=== PATIENT | female | born 1950 | race Caucasian/White ===

== ENCOUNTER 2018-10-12 14:01 | Inpatient (IN) | payer MEDICARE, SELFPAY ==
[2018-10-12] VITALS (8 sets, daily range): BP systolic 105–162; BP diastolic 47–111; PULSE 81–98; RESP 20–21; TEMP 36.4–37.1; O2SAT 94–97; BMI 17.6; BMI 14.4
--- NOTE | 2018-10-12 14:13 | RAD_ITS ---
STUDY: X-RAY CHEST REASON FOR EXAM: Female, 67 years old. Mental status changes. TECHNIQUE: Single AP portable view of the chest. COMPARISON: None. FINDINGS: EKG electrodes are seen. The lungs are clear and expanded. There is no demonstrated pleural abnormality. Normal size heart. Normal mediastinum and rian. Normal visualized pulmonary arteries. There is atherosclerotic calcification of the aortic arch with tortuosity. Normal visualized thoracic spine. Normal visualized ribs, clavicles, and shoulders. There is no demonstrated abnormality of the visualized soft tissue structures of the upper abdomen. RAD/Chest 1 View (Portable) IMPRESSION: Normal x-ray examination of the chest. Electronically Signed: Bj Paredes MD at 14:42 EST Tel [phone], Service support ,
--- NOTE | 2018-10-12 14:13 | CT_ITS ---
STUDY: CT BRAIN WITHOUT CONTRAST REASON FOR EXAM: Female, 67 years old. Hypotension. Mental status changes. RADIATION DOSAGE (If Supplied By Facility): CTDIvol = ( 44.99 ) mGy, DLP = ( 762.36 ) mGycm TECHNIQUE: Transaxial CT imaging of the brain was performed without administration of intravenous contrast material. Individualized dose optimization techniques were used for this CT. COMPARISON: None. FINDINGS: Normal soft tissue structures. Normal calvarium. There is mild cerebral atrophy with widening of the extra-axial spaces and ventricular dilatation. There are areas of decreased attenuation within the white matter tracts of the supratentorial brain, consistent with microvascular disease changes. Normal basal ganglia and thalami. Normal brainstem. There is mild cerebellar atrophy. There is no intracranial hemorrhage. There are no findings of an acute ischemic infarction. Mucosal thickening along the dependent portion of the right maxillary sinus. CT/Brain/Head without Contrast IMPRESSION: Chronic involutional changes of the brain. Electronically Signed: Bj Paredes MD at 15:13 EST Tel [phone], Service support ,
--- NOTE | 2018-10-12 14:13 | EKG12_ITS ---
Test Reason : HYPOTENSION Blood Pressure : / mmHG Vent. Rate : 087 BPM Atrial Rate : 087 BPM P-R Int : 118 ms QRS Dur : 064 ms QT Int : 394 ms P-R-T Axes : 048 -07 052 degrees QTc Int : 474 ms Normal sinus rhythm Septal infarct , age undetermined Abnormal ECG Confirmed by PANCHITO MARROQUIN, MALGORZATA ([id number]), international editorial producer RHINA SOMMERS ([id number]) on 10/17/2018 4:55:13 PM Referred By: Ra Archuleta Confirmed By:MALGORZATA FLANAGAN MD
--- NOTE | 2018-10-12 14:21 | NURSING ---
NO OLD EKGS
[2018-10-12] MEDS: 0.9% Normal Saline 1,000 ML 150 ML IV ×2 (14:29→21:23)
--- NOTE | 2018-10-12 14:29 | ED.RN ---
CONTACTED PATIENTS SISTER CRISTA FROM CONTACT LIST PROVIDED BY [facility]. SISTER AWARE PATIENT IS IN ED AND REQUESTS WE CALL HER AFTER WE DECIDE A COURSE OF TREATMENT FOR PATIENT.
[2018-10-12 14:31] LABS: Absolute Lymphocyte Count 0.61 X10^3/ul (0.83-4.51); Absolute Neutrophil Count 4.9 X10^3/uL (2.0-7.7); Basophil# 0.02 X10^3/uL; Basophil% 0.3 % (0-1); Eosinophil# 0.18 X10^3/uL; Eosinophils% 2.5 % (0-5); Hematocrit 39.4 % (37-47); Lymphocyte # 0.61 X10^3/ul (4.0); Lymphocyte % 8.6 % (19-41); Mean Corpuscular Hgb 30.7 pg (27.0-32.0); Mean Corpuscular Volume 93.1 fL (81-99); Mean Platelet Vol. 11.1 fl (6.2-12.0); Monocyte# 1.37 X10^3/uL; Monocyte% 19.2 % (0-10); Neutrophil # 4.93 X10^3/uL (2.7-7.7); Neutrophil % 69.1 % (47-70); Platelet Count 205 K/mm3 (150-450); RBC Distribution Width CV 15.8 % (11.6-14.6); RBC Distribution Width SD 52.5 fl (35.1-43.9); Red Blood Count 4.23 M/mm3 (4.2-5.4); White Blood Count 7.1 K/mm3 (4.4-11.0)
[2018-10-12 14:34] LABS: International Normalized Ratio 1.1; POSITIVE COUNT NO; POSITIVE DIFFERENTIAL NO; POSITIVE MORPHOLOGY NO; Prothrombin Time (Protime)PT. 14.1 SECONDS (11.7-14.9)
[2018-10-12 14:35] LABS: Partial Thromboplast Time 33.9 Seconds (24.1-36.2)
[2018-10-12 14:44] LABS: ALB/GLOB Ratio 0.7 RATIO (0.9-2.4); AST(SGOT) 26 U/L (15-37); Alanine Aminotransfer ALT/SGPT 33 U/L (13-56); Alkaline Phosphatase 73 U/L (45-117); Anion Gap 9 (5-15); BUN 16 mg/dL (7-18); BUN/Creat Ratio 29.5 RATIO (10-20); Calcium,Total 9.2 mg/dL (8.5-10.1); Chloride 102 mmol/L (98-107); Creatinine, Serum 0.54 mg/dL (0.55-1.02); EST Glomerular Filtration Rate 118 mL/min (>60); Est Glom Filt Rate - Afr Amer 143 mL/min (>60); Estimated Creatinine Clearance 35.37 ml/min; Globulin 4.1 g/dL (2.2-4.2); Glucose 94 mg/dL (74-106); Potassium 4.1 mmol/L (3.5-5.1); Protein, Total 7.1 g/dL (6.4-8.2); Sodium Level 140 mmol/L (136-145)
[2018-10-12 14:47] LABS: Lactic Acid 1.4 mmol/L (0.4-2.0)
[2018-10-12 14:52] LABS: Mucous, Urine 0 SEEN /hpf (<or=2+); Red Blood Cells-Urine 0 SEEN /hpf (0-5); Squamous Epithelial Cells - UA 0 SEEN /hpf (5-10)
[2018-10-12 14:55] LABS: Color, Urine Yellow (Yellow); Glucose, Dipstick Normal (Normal); Ketone-Dipstick 50 mg/dl (Negative); Leukocyte Esterase-Dipstick 500 /ul (Negative); Nitrite-Dipstick Negative (Negative); Occult Blood-Urine 25 /ul (Negative); Protein-Dipstick 15 mg/dl (Negative); Specific Gravity, Urine 1.015 (1.002-1.030); Urine Bilirubin Dipstick Negative (Negative); Urine Clarity Cloudy (Clear); Urine Urobilinogen Normal (Normal)
--- NOTE | 2018-10-12 15:10 | ED.VISSUMM ---
- ER Visit Summary Date of Service: 10/12/18 Chief Complaint: Mental status change History of Present Illness: The patient is a [address] Romulo Villeda. She is at [facility]. They report that the patient has been hypotensive there with blood pressure in the 80s. She has not been eating. Patient is a poor informant and unable to answer any questions appropriately. Per sister the patient is normally very talkative and alert. She is a full code. Physical Examination: Vitals: Stable. Afebrile. General: Well-developed and cachectic. Head: Normocephalic atraumatic. Neck: Supple, no lymphadenopathy. No JVD. Nontender. Cardiovascular: Regular rate and rhythm. No murmurs. Respiratory: No respiratory distress. Clear to auscultation bilaterally. Abdominal: Soft, nontender, nondistended, normal bowel sounds. No guarding, rebound, or peritoneal signs. Back: Nontender. Extremities: Nontender, no edema. Skin: Normal color, no rash. Neurologic: Alert and oriented ?1. Moves all extremities well. Psych: Normal affect. Test Results: EKG is sinus at 87 no acute changes. CBC is more for lymphocytes and 9 monocytes of 19. Chem-7 is more for creatinine 0.54. LFTs marked for an albumin 3.0. Lactic acid is 1.4. UA shows an infection with 10-25 white blood cells and 4+ bacteria. Chest x-ray shows chronic changes. CT brain shows chronic changes. Emergency Department Course and Treatment: Patient blood pressures been stable here. Most recent pressure was 126/82. She was given Rocephin IV. Treatment Plan: Patient be discussed with the hospitalist and admitted for further evaluation and treatment. Disposition: Admitted in improved condition. Impression: 1. UTI. 2. Acute delirium. This note was generated with [employer] dictation software. It may contain incorrect words, spelling, and punctuation that were not noted in review of the chart prior to signing ED Disposition - Plan for ED Patient: Chief Complaint: Hypotension
[2018-10-12 15:13] LABS: Amorphous Sediment 4+
[2018-10-12 15:14] LABS: Triple Phosphate Crystals Ur RARE /hpf (<or=1+)
[2018-10-12 15:15] LABS: Bacteria 4+ /hpf (None Seen); Calcium Oxalate Crystals Ur RARE /hpf (<or=2+); White Blood Cells 10-25 SEEN /hpf (0-5)
--- NOTE | 2018-10-12 16:01 | PCM.HP.STD ---
Problem List (1) UTI (urinary tract infection) Status: Acute (2) Acute metabolic encephalopathy Status: Acute (3) Anxiety Status: Chronic (4) Schizophrenia Status: Chronic (5) Bipolar 1 disorder Status: Chronic (6) Insomnia Status: Chronic (7) Debility Status: Chronic History of Present Illness Date of Admission: 10/12/18 Chief Complaint: confusion The patient is a 67 year old F with past medical history of schizophrenia, bipolar, anxiety, insomnia, debility, COPD, resident of [facility], who [facility] with increased confusion. There is nobody here to provide a history aside from the patient who is very confused. She is able to tell me her name and what year it is however otherwise she is very confused. She states she does not know why which she was sent here. She thinks it is because she asked for water causing them to send her to the emergency room. It appears that she may have a urinary tract infection. She denies abdominal pain, dysuria, fevers or chills, shortness of breath or cough. She seems somewhat lethargic and will not open her eyes during the exam. 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 Lives: Retirement Smoking Status: Unknown if ever smoked Tobacco Use: Non-smoker Alcohol: None Drugs: None - *Family History Maternal History Items: No pertinent history Paternal History Items: No pertinent history Review of Systems Constitutional: Denies: Chills, Fever, Weight Change, Fatigue HEENT: Denies: Head Aches, Sinus Congestion, Sinus Drainage Cardiovascular: Denies: Chest Pain, Palpitations Respiratory: Denies: Cough, Shortness of breath at rest, Sputum production Gastrointestinal: Denies: Abdominal Pain, Nausea, Vomiting Genitourinary: Denies: Dysuria Musculoskeletal: Denies: Joint Pain, Joint Tenderness Skin: Denies: Rash, Wounds Neurological: Reports: Confusion. Denies: Focal weakness, Numbness, Tingling Psychiatric: Reports: Anxiety, Depression. Denies: Homicidal Ideations, Suicidal Ideations Hematologic/ Lymphatic: Denies: Easy Bruising, Easy Bleeding VTE Information - Inpt Only VTE Present on Admission: No VTE Mechan Device Prophylaxis: None VTE Pharm Prophylaxis ordered?: Yes Patient Problems: Active and Suspected Problems UTI (urinary tract infection) (Acute) Acute metabolic encephalopathy (Acute) - Physical Exam General: Alert, Cooperative, Confused, - - frail HEENT: Atraumatic, PERRLA, EOMI, Normocephalic, - - eyelid matting, scleral erythema Neck: Supple, No JVD, Negative Carotid Bruits Lungs: Clear to auscultation, Normal air movement Cardiovascular: Regular rate, No murmurs Abdomen: Bowel Sounds Present, Soft, Non Tender Extremities: No edema, Capillary Refill Less than 3 Seconds Skin: No rashes, No breakdown Musculoskeletal: No Tenderness to Palpation of Joints or Extremities Neurological: Cranial nerves II-XII grossly intact Psych/Mental Status: - - a/o x 1 Vital Signs Temp Pulse Resp BP Pulse Ox 98.3 F 84 21 H 126/82 H 96 10/12/18 15:22 10/12/18 15:13 10/12/18 15:13 10/12/18 15:13 10/12/18 15:13 Oxygen Delivery Method Room Air Weight: 93 lb 0.561 oz Body Mass Index (BMI) 17.6 Laboratory Tests Past 24 Hrs 10/12/18 10/12/18 10/12/18 14:15 14:15 14:15 WBC 7.1 RBC 4.23 Hgb 13.0 Hct 39.4 MCV 93.1 MCH 30.7 MCHC 33.0 RDW 15.8 H RDW Differential 52.5 H Plt Count 205 MPV 11.1 Immature Gran % (Auto) 0.300 Neut % (Auto) 69.1 Lymph % (Auto) 8.6 L [place] % (Auto) 19.2 H Eos % (Auto) 2.5 Baso % (Auto) 0.3 Absolute Neuts (auto) 4.9 Absolute Lymphs (auto) 0.61 L Total Counted Not Reportable PT 14.1 INR 1.1 APTT 33.9 Sodium 140 Potassium 4.1 Chloride 102 Carbon Dioxide 29.0 Anion Gap 9 BUN 16 Creatinine 0.54 L Estim Creat Clear Calc 35.37 Est GFR (MDRD) Af Amer 143 Est GFR (MDRD) Non-Af 118 BUN/Creatinine Ratio 29.5 H Glucose 94 Lactic Acid Calcium 9.2 Total Bilirubin 0.30 AST 26 ALT 33 Alkaline Phosphatase 73 Total Protein 7.1 Albumin 3.0 L Globulin 4.1 Albumin/Globulin Ratio 0.7 L Urine Color Urine Clarity Urine pH Ur Specific [place] Urine Protein Urine Glucose (UA) Urine Ketones Urine Occult Blood Urine Nitrite Urine Bilirubin Urine Urobilinogen Ur Leukocyte Esterase Urine RBC Urine WBC Ur Squamous Epith Cells Calcium Oxalate Crystal Triple Phos Crystals Amorphous Sediment Urine Bacteria Urine Mucus 10/12/18 10/12/18 14:15 14:40 WBC RBC Hgb Hct MCV MCH MCHC RDW RDW Differential Plt Count MPV Immature Gran % (Auto) Neut % (Auto) Lymph % (Auto) [place] % (Auto) Eos % (Auto) Baso % (Auto) Absolute Neuts (auto) Absolute Lymphs (auto) Total Counted PT INR APTT Sodium Potassium Chloride Carbon Dioxide Anion Gap BUN Creatinine Estim Creat Clear Calc Est GFR (MDRD) Af Amer Est GFR (MDRD) Non-Af BUN/Creatinine Ratio Glucose Lactic Acid 1.4 Calcium Total Bilirubin AST ALT Alkaline Phosphatase Total Protein Albumin Globulin Albumin/Globulin Ratio Urine Color Yellow Urine Clarity Cloudy Urine pH 7.0 Ur Specific [place] 1.015 Urine Protein 15 H Urine Glucose (UA) Normal Urine Ketones 50 H Urine Occult Blood 25 H Urine Nitrite Negative Urine Bilirubin Negative Urine Urobilinogen Normal Ur Leukocyte Esterase 500 H Urine RBC 0 SEEN Urine WBC 10-25 SEEN Ur Squamous Epith Cells 0 SEEN Calcium Oxalate Crystal RARE Triple Phos Crystals RARE Amorphous Sediment 4+ Urine Bacteria 4+ Urine Mucus 0 SEEN Assessment/Plan All Active Problems UTI (urinary tract infection) (Acute) Acute metabolic encephalopathy (Acute) 1. Acute metabolic encephalopathy 2/2 acute UTI - UA with inc. leukocyte esterase, 10-25 wbc, 4+ bacteria continue rocephin, no reaction to it in the ER. No WBC elevation or fever. Follow culture. Possibly viral syndrome with her conjunctival irritation. CT brain with chronic changes. CXR negative. 2. Anxiety/schizophrenia/bipolar - continue home meds. Depakote level on labs sent from [facility]. 3. COPD - lungs clear, O2 normal, no complaint of cough or SOB. 4. HTN - mildly elevated in ER, improving, trend. DVT ppx: lovenox DC planning: return to [facility] when appropriate. This patient was seen by Efrain Sanchez PA-C under the supervision of Doctor Geremias.
--- NOTE | 2018-10-12 16:05 | HP.PCM_ITS ---
Problem List (1) UTI (urinary tract infection) Status: Acute (2) Acute metabolic encephalopathy Status: Acute (3) Anxiety Status: Chronic (4) Schizophrenia Status: Chronic (5) Bipolar 1 disorder Status: Chronic (6) Insomnia Status: Chronic (7) Debility Status: Chronic History of Present Illness Date of Admission: 10/12/18 Chief Complaint: confusion The patient is a 67 year old F with past medical history of schizophrenia, bipolar, anxiety, insomnia, debility, COPD, resident of [facility], who presented from the care home with increased confusion. There is nobody here to provide a history aside from the patient who is very confused. She is able to tell me her name and what year it is however otherwise she is very confused. She states she does not know why which she was sent here. She thinks it is because she asked for water causing them to send her to the emergency room. It appears that she may have a urinary tract infection. She denies abdominal pain, dysuria, fevers or chills, shortness of breath or cough. She seems somewhat lethargic and will not open her eyes during the exam. 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 [place] Smoking Status: Unknown if ever smoked Tobacco Use: Non-smoker Alcohol: None Drugs: None - *Family History Maternal History Items: No pertinent history Paternal History Items: No pertinent history Review of Systems Constitutional: Denies: Chills, Fever, Weight Change, Fatigue HEENT: Denies: Head Aches, Sinus Congestion, Sinus Drainage Cardiovascular: Denies: Chest Pain, Palpitations Respiratory: Denies: Cough, Shortness of breath at rest, Sputum production Gastrointestinal: Denies: Abdominal Pain, Nausea, Vomiting Genitourinary: Denies: Dysuria Musculoskeletal: Denies: Joint Pain, Joint Tenderness Skin: Denies: Rash, Wounds Neurological: Reports: Confusion. Denies: Focal weakness, Numbness, Tingling Psychiatric: Reports: Anxiety, Depression. Denies: Homicidal Ideations, Suicidal Ideations Hematologic/ Lymphatic: Denies: Easy Bruising, Easy Bleeding VTE Information - Inpt Only VTE Present on Admission: No VTE Mechan Device Prophylaxis: None VTE Pharm Prophylaxis ordered?: Yes Patient Problems: Active and Suspected Problems UTI (urinary tract infection) (Acute) Acute metabolic encephalopathy (Acute) - Physical Exam General: Alert, Cooperative, Confused, - - frail HEENT: Atraumatic, PERRLA, EOMI, Normocephalic, - - eyelid matting, scleral erythema Neck: Supple, No JVD, Negative Carotid Bruits Lungs: Clear to auscultation, Normal air movement Cardiovascular: Regular rate, No murmurs Abdomen: Bowel Sounds Present, Soft, Non Tender Extremities: No edema, Capillary Refill Less than 3 Seconds Skin: No rashes, No breakdown Musculoskeletal: No Tenderness to Palpation of Joints or Extremities Neurological: Cranial nerves II-XII grossly intact Psych/Mental Status: - - a/o x 1 Vital Signs Temp Pulse Resp BP Pulse Ox 98.3 F 84 21 H 126/82 H 96 10/12/18 15:22 10/12/18 15:13 10/12/18 15:13 10/12/18 15:13 10/12/18 15:13 Oxygen Delivery Method Room Air Weight: 93 lb 0.561 oz Body Mass Index (BMI) 17.6 Laboratory Tests Past 24 Hrs 10/12/18 10/12/18 10/12/18 14:15 14:15 14:15 WBC 7.1 RBC 4.23 Hgb 13.0 Hct 39.4 MCV 93.1 MCH 30.7 MCHC 33.0 RDW 15.8 H RDW Differential 52.5 H Plt Count 205 MPV 11.1 Immature Gran % (Auto) 0.300 Neut % (Auto) 69.1 Lymph % (Auto) 8.6 L [place] % (Auto) 19.2 H Eos % (Auto) 2.5 Baso % (Auto) 0.3 Absolute Neuts (auto) 4.9 Absolute Lymphs (auto) 0.61 L Total Counted Not Reportable PT 14.1 INR 1.1 APTT 33.9 Sodium 140 Potassium 4.1 Chloride 102 Carbon Dioxide 29.0 Anion Gap 9 BUN 16 Creatinine 0.54 L Estim Creat Clear Calc 35.37 Est GFR (MDRD) Af Amer 143 Est GFR (MDRD) Non-Af 118 BUN/Creatinine Ratio 29.5 H Glucose 94 Lactic Acid Calcium 9.2 Total Bilirubin 0.30 AST 26 ALT 33 Alkaline Phosphatase 73 Total Protein 7.1 Albumin 3.0 L Globulin 4.1 Albumin/Globulin Ratio 0.7 L Urine Color Urine Clarity Urine pH Ur Specific [place] Urine Protein Urine Glucose (UA) Urine Ketones Urine Occult Blood Urine Nitrite Urine Bilirubin Urine Urobilinogen Ur Leukocyte Esterase Urine RBC Urine WBC Ur Squamous Epith Cells Calcium Oxalate Crystal Triple Phos Crystals Amorphous Sediment Urine Bacteria Urine Mucus 10/12/18 10/12/18 14:15 14:40 WBC RBC Hgb Hct MCV MCH MCHC RDW RDW Differential Plt Count MPV Immature Gran % (Auto) Neut % (Auto) Lymph % (Auto) [place] % (Auto) Eos % (Auto) Baso % (Auto) Absolute Neuts (auto) Absolute Lymphs (auto) Total Counted PT INR APTT Sodium Potassium Chloride Carbon Dioxide Anion Gap BUN Creatinine Estim Creat Clear Calc Est GFR (MDRD) Af Amer Est GFR (MDRD) Non-Af BUN/Creatinine Ratio Glucose Lactic Acid 1.4 Calcium Total Bilirubin AST ALT Alkaline Phosphatase Total Protein Albumin Globulin Albumin/Globulin Ratio Urine Color Yellow Urine Clarity Cloudy Urine pH 7.0 Ur Specific [place] 1.015 Urine Protein 15 H Urine Glucose (UA) Normal Urine Ketones 50 H Urine Occult Blood 25 H Urine Nitrite Negative Urine Bilirubin Negative Urine Urobilinogen Normal Ur Leukocyte Esterase 500 H Urine RBC 0 SEEN Urine WBC 10-25 SEEN Ur Squamous Epith Cells 0 SEEN Calcium Oxalate Crystal RARE Triple Phos Crystals RARE Amorphous Sediment 4+ Urine Bacteria 4+ Urine Mucus 0 SEEN Assessment/Plan All Active Problems UTI (urinary tract infection) (Acute) Acute metabolic encephalopathy (Acute) 1. Acute metabolic encephalopathy 2/2 acute UTI - UA with inc. leukocyte esterase, 10-25 wbc, 4+ bacteria continue rocephin, no reaction to it in the ER. No WBC elevation or fever. Follow culture. Possibly viral syndrome with her conjunctival irritation. CT brain with chronic changes. CXR negative. 2. Anxiety/schizophrenia/bipolar - continue home meds. Depakote level on labs sent from [facility]. 3. COPD - lungs clear, O2 normal, no complaint of cough or SOB. 4. HTN - mildly elevated in ER, improving, trend. DVT ppx: lovenox DC planning: return to [facility] when appropriate. This patient was seen by Efrain Sanchez PA-C under the supervision of Doctor Geremias.
--- NOTE | 2018-10-12 16:11 | ED.RN ---
FOUND IN PATIENTS INFO FROM [facility] PT IS ALLERGIC TO CEFTRIAXONE. NOTIFIED DR CLARK AND PHARMACY. DR CLARK TO CHANGE ORDER TO DIFFERENT ANTIBIOTIC.
--- NOTE | 2018-10-12 16:18 | NURSING ---
[facility]
--- NOTE | 2018-10-12 16:28 | ED.RN ---
PATIENTS SON ABHAY NOTIFIED THAT PATIENT IS TO BE ADMITTED TO [facility]. STATES HE WILL CONTACT THE REST OF THE FAMILY. ABHAY IS LISTED AT A CONTACT MEMBER ON PATIENTS LIST.
[2018-10-12] MEDS: Ciprofloxacin 400 MG/200 ML BAG 200 MG IV ×2 (16:52→21:23)
[2018-10-12 18:36] LABS: Prealbumin 11.6 mg/dL (20.0-40.0); Thyroid Stim Hormone (TSH) 0.91 uIU/mL (0.358-3.74)
[2018-10-13] VITALS: PULSE 88
[2018-10-13 02:14] VITALS: BP 127/71; PULSE 88; RESP 21; TEMP 37.4; O2SAT 97
[2018-10-13 04:26] VITALS: TEMP 36.4
[2018-10-13] MEDS: 0.9% Normal Saline 1,000 ML 150 ML IV ×3 (05:06→20:14)
[2018-10-13 07:35] VITALS: BP 113/80; PULSE 100; RESP 20; TEMP 37.6; O2SAT 94
[2018-10-13 08:24] LABS: Vitamin D,25 Hydroxy 71.3 ng/mL (29.95-100.01)
[2018-10-13] MEDS: Enoxaparin 40 MG/0.4 ML Syringe SC (09:31)
[2018-10-13] MEDS: Ciprofloxacin 400 MG/200 ML BAG 200 MG IV ×2 (09:31→22:48)
--- NOTE | 2018-10-13 10:38 | CASEMGMT ---
Addendum entered by Mariann Clements 10/13/18 12:18: Return call from pt son Catarino and confirmed pt will be returning to [facility] when medically ready. Catarino states pt dgt is primary contact. Ruth Roman [phone] Ruth's phone number updated on demo sheet. SW attempted to call Ruth. No VM set up. Unable to leave a message. KRISTINE Lee Original Note: Social Work Pt is from [facility]. DANO spoke with Elmira at [facility] who states pt does not need precert and can return to [facility] anytime. DANO met with pt however pt sleeping and when awoke she is unable to converse with SW. VM left with andrew Toribio requesting return call to confirm d/c plan. Physician notified pt can be d/c when medically ready. Plan: [facility] when medically ready KRISTINE Lee
--- NOTE | 2018-10-13 13:55 | PCM.PROGNOTE ---
<Efrain Sanchez - Last Filed: 10/13/18 13:55> Patient Problems: Active and Suspected Problems UTI (urinary tract infection) (Acute) Acute metabolic encephalopathy (Acute) Subjective: Pt is somewhat more alert today. She is opening her eyes when addressed. She is now A/Ox3. She denies dysuria, incontinence, abdominal pain, fevers, chills. - Physical Exam General: Alert, Oriented x3, Cooperative, Lethargic HEENT: Atraumatic, PERRLA, EOMI, Normocephalic Neck: Supple, No JVD, Negative Carotid Bruits Lungs: Clear to auscultation, Normal air movement Cardiovascular: Regular rate, No murmurs Abdomen: Bowel Sounds Present, Soft, Non Tender Extremities: No edema, Capillary Refill Less than 3 Seconds Skin: No rashes, No breakdown Musculoskeletal: No Tenderness to Palpation of Joints or Extremities Neurological: Cranial nerves II-XII grossly intact Psych/Mental Status: Normal Affect, Appropriate Vital Signs Temp Pulse Resp BP Pulse Ox 99.6 F H 100 20 H 113/80 94 10/13/18 07:35 10/13/18 07:35 10/13/18 07:35 10/13/18 07:35 10/13/18 07:35 Oxygen Delivery Method Room Air Weight: 76 lb 8.006 oz Body Mass Index (BMI) 14.4 Intake and Output for Last 24 Hours 10/11/18 10/12/18 10/13/18 23:59 23:59 23:59 Intake Total 307 / 307 3006 / 3006 Output Total 150 / 150 650 / 650 Balance 157 / 157 2356 / 2356 Microbiology Past 72 Hours 10/12/18 19:36 Respiratory Panel (PCR) - Final Mucosa - Nasopharyngeal Laboratory Tests Past 24 Hrs 10/12/18 10/12/18 10/12/18 14:15 14:15 14:15 WBC 7.1 RBC 4.23 Hgb 13.0 Hct 39.4 MCV 93.1 MCH 30.7 MCHC 33.0 RDW 15.8 H RDW Differential 52.5 H Plt Count 205 MPV 11.1 Immature Gran % (Auto) 0.300 Neut % (Auto) 69.1 Lymph % (Auto) 8.6 L O'Brien % (Auto) 19.2 H Eos % (Auto) 2.5 Baso % (Auto) 0.3 Absolute Neuts (auto) 4.9 Absolute Lymphs (auto) 0.61 L Total Counted Not Reportable PT 14.1 INR 1.1 APTT 33.9 Sodium 140 Potassium 4.1 Chloride 102 Carbon Dioxide 29.0 Anion Gap 9 BUN 16 Creatinine 0.54 L Estim Creat Clear Calc 35.37 Est GFR (MDRD) Af Amer 143 Est GFR (MDRD) Non-Af 118 BUN/Creatinine Ratio 29.5 H Glucose 94 Lactic Acid Calcium 9.2 Total Bilirubin 0.30 AST 26 ALT 33 Alkaline Phosphatase 73 Total Protein 7.1 Albumin 3.0 L Globulin 4.1 Albumin/Globulin Ratio 0.7 L Prealbumin Vitamin D 25-Hydroxy TSH Urine Color Urine Clarity Urine pH Ur Specific [place] Urine Protein Urine Glucose (UA) Urine Ketones Urine Occult Blood Urine Nitrite Urine Bilirubin Urine Urobilinogen Ur Leukocyte Esterase Urine RBC Urine WBC Ur Squamous Epith Cells Calcium Oxalate Crystal Triple Phos Crystals Amorphous Sediment Urine Bacteria Urine Mucus 10/12/18 10/12/18 10/12/18 14:15 14:15 14:40 WBC RBC Hgb Hct MCV MCH MCHC RDW RDW Differential Plt Count MPV Immature Gran % (Auto) Neut % (Auto) Lymph % (Auto) O'Brien % (Auto) Eos % (Auto) Baso % (Auto) Absolute Neuts (auto) Absolute Lymphs (auto) Total Counted PT INR APTT Sodium Potassium Chloride Carbon Dioxide Anion Gap BUN Creatinine Estim Creat Clear Calc Est GFR (MDRD) Af Amer Est GFR (MDRD) Non-Af BUN/Creatinine Ratio Glucose Lactic Acid 1.4 Calcium Total Bilirubin AST ALT Alkaline Phosphatase Total Protein Albumin Globulin Albumin/Globulin Ratio Prealbumin 11.6 L Vitamin D 25-Hydroxy TSH 0.91 Urine Color Yellow Urine Clarity Cloudy Urine pH 7.0 Ur Specific [place] 1.015 Urine Protein 15 H Urine Glucose (UA) Normal Urine Ketones 50 H Urine Occult Blood 25 H Urine Nitrite Negative Urine Bilirubin Negative Urine Urobilinogen Normal Ur Leukocyte Esterase 500 H Urine RBC 0 SEEN Urine WBC 10-25 SEEN Ur Squamous Epith Cells 0 SEEN Calcium Oxalate Crystal RARE Triple Phos Crystals RARE Amorphous Sediment 4+ Urine Bacteria 4+ Urine Mucus 0 SEEN 10/13/18 05:16 WBC RBC Hgb Hct MCV MCH MCHC RDW RDW Differential Plt Count MPV Immature Gran % (Auto) Neut % (Auto) Lymph % (Auto) O'Brien % (Auto) Eos % (Auto) Baso % (Auto) Absolute Neuts (auto) Absolute Lymphs (auto) Total Counted PT INR APTT Sodium Potassium Chloride Carbon Dioxide Anion Gap BUN Creatinine Estim Creat Clear Calc Est GFR (MDRD) Af Amer Est GFR (MDRD) Non-Af BUN/Creatinine Ratio Glucose Lactic Acid Calcium Total Bilirubin AST ALT Alkaline Phosphatase Total Protein Albumin Globulin Albumin/Globulin Ratio Prealbumin Vitamin D 25-Hydroxy 71.3 TSH Urine Color Urine Clarity Urine pH Ur Specific [place] Urine Protein Urine Glucose (UA) Urine Ketones Urine Occult Blood Urine Nitrite Urine Bilirubin Urine Urobilinogen Ur Leukocyte Esterase Urine RBC Urine WBC Ur Squamous Epith Cells Calcium Oxalate Crystal Triple Phos Crystals Amorphous Sediment Urine Bacteria Urine Mucus Medical Necessity - Tobacco Use Smoking Status: Unknown if ever smoked Tobacco Use: Non-smoker Assessment/Plan All Active Problems UTI (urinary tract infection) (Acute) Acute metabolic encephalopathy (Acute) 1. Acute metabolic encephalopathy 2/2 acute UTI - mentation improved, still lethargic. UA with inc. leukocyte esterase, 10-25 wbc, 4+ bacteria continue cipro. Await cultures. 2. Anxiety/schizophrenia/bipolar - continue home meds. Depakote level on labs sent from [facility]. 3. COPD - lungs clear, O2 normal, no complaint of cough or SOB. 4. HTN - mildly elevated in ER, improving, trend. DVT ppx: lovenox DC planning: return to [facility] when appropriate. This patient was seen by Efrain Sanchez PA-C under the supervision of Doctor Aliza. <Andres Ordonez F - Last Filed: 10/13/18 14:32> - Physical Exam Vital Signs Temp Pulse Resp BP Pulse Ox 99.6 F H 100 20 H 113/80 94 10/13/18 07:35 10/13/18 07:35 10/13/18 07:35 10/13/18 07:35 10/13/18 07:35 Oxygen Delivery Method Room Air Weight: 76 lb 8.006 oz Body Mass Index (BMI) 14.4 Intake and Output for Last 24 Hours 10/11/18 10/12/18 10/13/18 23:59 23:59 23:59 Intake Total 307 / 307 3006 / 3006 Output Total 150 / 150 650 / 650 Balance 157 / 157 2356 / 2356 Microbiology Past 72 Hours 10/12/18 19:36 Respiratory Panel (PCR) - Final Mucosa - Nasopharyngeal Laboratory Tests Past 24 Hrs 10/12/18 10/12/18 10/12/18 14:15 14:15 14:15 WBC 7.1 RBC 4.23 Hgb 13.0 Hct 39.4 MCV 93.1 MCH 30.7 MCHC 33.0 RDW 15.8 H RDW Differential 52.5 H Plt Count 205 MPV 11.1 Immature Gran % (Auto) 0.300 Neut % (Auto) 69.1 Lymph % (Auto) 8.6 L O'Brien % (Auto) 19.2 H Eos % (Auto) 2.5 Baso % (Auto) 0.3 Absolute Neuts (auto) 4.9 Absolute Lymphs (auto) 0.61 L Total Counted Not Reportable PT 14.1 INR 1.1 APTT 33.9 Sodium 140 Potassium 4.1 Chloride 102 Carbon Dioxide 29.0 Anion Gap 9 BUN 16 Creatinine 0.54 L Estim Creat Clear Calc 35.37 Est GFR (MDRD) Af Amer 143 Est GFR (MDRD) Non-Af 118 BUN/Creatinine Ratio 29.5 H Glucose 94 Lactic Acid Calcium 9.2 Total Bilirubin 0.30 AST 26 ALT 33 Alkaline Phosphatase 73 Total Protein 7.1 Albumin 3.0 L Globulin 4.1 Albumin/Globulin Ratio 0.7 L Prealbumin Vitamin D 25-Hydroxy TSH Urine Color Urine Clarity Urine pH Ur Specific [place] Urine Protein Urine Glucose (UA) Urine Ketones Urine Occult Blood Urine Nitrite Urine Bilirubin Urine Urobilinogen Ur Leukocyte Esterase Urine RBC Urine WBC Ur Squamous Epith Cells Calcium Oxalate Crystal Triple Phos Crystals Amorphous Sediment Urine Bacteria Urine Mucus 10/12/18 10/12/18 10/12/18 14:15 14:15 14:40 WBC RBC Hgb Hct MCV MCH MCHC RDW RDW Differential Plt Count MPV Immature Gran % (Auto) Neut % (Auto) Lymph % (Auto) O'Brien % (Auto) Eos % (Auto) Baso % (Auto) Absolute Neuts (auto) Absolute Lymphs (auto) Total Counted PT INR APTT Sodium Potassium Chloride Carbon Dioxide Anion Gap BUN Creatinine Estim Creat Clear Calc Est GFR (MDRD) Af Amer Est GFR (MDRD) Non-Af BUN/Creatinine Ratio Glucose Lactic Acid 1.4 Calcium Total Bilirubin AST ALT Alkaline Phosphatase Total Protein Albumin Globulin Albumin/Globulin Ratio Prealbumin 11.6 L Vitamin D 25-Hydroxy TSH 0.91 Urine Color Yellow Urine Clarity Cloudy Urine pH 7.0 Ur Specific [place] 1.015 Urine Protein 15 H Urine Glucose (UA) Normal Urine Ketones 50 H Urine Occult Blood 25 H Urine Nitrite Negative Urine Bilirubin Negative Urine Urobilinogen Normal Ur Leukocyte Esterase 500 H Urine RBC 0 SEEN Urine WBC 10-25 SEEN Ur Squamous Epith Cells 0 SEEN Calcium Oxalate Crystal RARE Triple Phos Crystals RARE Amorphous Sediment 4+ Urine Bacteria 4+ Urine Mucus 0 SEEN 10/13/18 05:16 WBC RBC Hgb Hct MCV MCH MCHC RDW RDW Differential Plt Count MPV Immature Gran % (Auto) Neut % (Auto) Lymph % (Auto) O'Brien % (Auto) Eos % (Auto) Baso % (Auto) Absolute Neuts (auto) Absolute Lymphs (auto) Total Counted PT INR APTT Sodium Potassium Chloride Carbon Dioxide Anion Gap BUN Creatinine Estim Creat Clear Calc Est GFR (MDRD) Af Amer Est GFR (MDRD) Non-Af BUN/Creatinine Ratio Glucose Lactic Acid Calcium Total Bilirubin AST ALT Alkaline Phosphatase Total Protein Albumin Globulin Albumin/Globulin Ratio Prealbumin Vitamin D 25-Hydroxy 71.3 TSH Urine Color Urine Clarity Urine pH Ur Specific [place] Urine Protein Urine Glucose (UA) Urine Ketones Urine Occult Blood Urine Nitrite Urine Bilirubin Urine Urobilinogen Ur Leukocyte Esterase Urine RBC Urine WBC Ur Squamous Epith Cells Calcium Oxalate Crystal Triple Phos Crystals Amorphous Sediment Urine Bacteria Urine Mucus Code Visit Addendum: Dr. Ordonez I personally examined the patient and reviewed the chart. I agree with the above. 67-year-old female presenting with acute metabolic encephalopathy secondary to acute urinary tract infection. She is being treated with ciprofloxacin twice daily because she is allergic to Rocephin. Will await sensitivities prior to making any final adjustments to her antibiotics. Of note she does appear to be doing better today, more alert than she was on admission. In discussion with case management she will be able to be discharged back to the facility whenever she is ready as she does not need a precertification. Inpatient E&M: 66370 Subs Hosp L2
[2018-10-13 14:00] VITALS: BP 127/84; PULSE 95; RESP 18; TEMP 37.1; O2SAT 94
[2018-10-13 20:06] VITALS: BP 136/76; PULSE 82; RESP 18; TEMP 36.8; O2SAT 95
[2018-10-14] MEDS: Acetaminophen 325 MG Tablet 650 MG PO (00:24)
[2018-10-14 02:28] VITALS: BP 121/69; PULSE 69; RESP 18; TEMP 36.7; O2SAT 100
[2018-10-14] MEDS: 0.9% Normal Saline 1,000 ML 150 ML IV (04:26)
--- NOTE | 2018-10-14 09:19 | PCM.TXEXTCAR ---
- Diet 10/12/18 17:24 Diet: Regular Diet Food consistency:: Regular Liquid Consistency:: Regular/Thin Diet Comments: must be alert. 1 to 1 assist otherwise. - Allergies/Procedures Done in Hospital Allergies/Adverse Reactions: Allergies ceftriaxone Allergy (Verified 10/12/18 16:04) Unknown lisinopril Allergy (Verified 10/12/18 16:04) Unknown niacin Allergy (Verified 10/12/18 16:04) Unknown - Type of Care/Length of Stay Estimated LOS: Convalescent Care Less Than 30 days Type of Care Needed: Skilled Rehab Potential: Good Prognosis: Good - Additional Orders/Day of Discharge Day of Discharge: 10/14/18 - Dietary and Speech Recommendations Dietitian Recommendations/Changes: Continue regular diet and ONS as indicated. Will provide ensure pudding or magic cup with meals for increased nutrition if consumed. If intake remains low d/t poor appetite and weight loss continues, consider nutrition support. - Follow Up Care Primary Care Physician: Romulo Juárez MD [Primary Care Provider] - Please follow up with your Primary Care Physician in: 3-5 days
--- NOTE | 2018-10-14 09:24 | PCM.DC.SUM ---
Discharge Date and Diagnosis - Problem List Patient Problems: Active and Suspected Problems UTI (urinary tract infection) (Acute) Acute metabolic encephalopathy (Acute) Date of Admission: 10/12/18 Date of Discharge: 10/14/18 - Primary Discharge Diagnosis Active and Suspected Problems UTI (urinary tract infection) (Acute) Acute metabolic encephalopathy (Acute) - Secondary Discharge Diagnosis Chronic Problems Anxiety (Chronic) Schizophrenia (Chronic) Bipolar 1 disorder (Chronic) Insomnia (Chronic) Debility (Chronic) Hospital Course and Treatment Imaging Results: CT brain: IMPRESSION: Chronic involutional changes of the brain. CXR: IMPRESSION: Normal x-ray examination of the chest. Consults: None Operations: None Procedures: None Summary of Care Provided: Per HPI: The patient is a 67 year old F with past medical history of schizophrenia, bipolar, anxiety, insomnia, debility, COPD, resident of [facility], who presented from the snf with increased confusion. There is nobody here to provide a history aside from the patient who is very confused. She is able to tell me her name and what year it is however otherwise she is very confused. She states she does not know why which she was sent here. She thinks it is because she asked for water causing them to send her to the emergency room. It appears that she may have a urinary tract infection. She denies abdominal pain, dysuria, fevers or chills, shortness of breath or cough. She seems somewhat lethargic and will not open her eyes during the exam. Hospital Course: 1. Acute metabolic encephalopathy secondary to acute UTI -on admission she was lethargic and was unable to communicate very well she had a chest x-ray which was negative and CT brain which was also negative. Her UA in the ER was dirty and a cultures demonstrating gram-negative rods and alpha hemolytic gram-positive cocci, she is currently on Cipro twice daily and her mentation has improved greatly. She was able to communicate with me today and hold a conversation and she was awake. Vital signs are normal and she has been afebrile. We will plan for discharge back to her SNF on p.o. Cipro twice daily for 5 more days. I will monitor her urine culture results and if a change in antibiotic needs to be done I will call the snf. 2. Her other home medical diagnoses were evaluated and her home medications were continued aware appropriate Patient Problems: Active and Suspected Problems UTI (urinary tract infection) (Acute) Acute metabolic encephalopathy (Acute) - Physical Exam General: Alert, Oriented x3, Cooperative, No apparent distress HEENT: Atraumatic, PERRLA, EOMI, Normocephalic Oral: Moist Mucosa Neck: Supple, No JVD, Trachea Midline Lungs: Clear to auscultation, Normal air movement, No rhonchi, No wheeze, No rales Cardiovascular: Regular rate, Regular Rhythm, Normal S1, Normal S2, No murmurs, No rub noted, No Gallop Abdomen: Soft, Non Tender, Non-Distended, No Hepato-splenomegaly Extremities: No edema, Capillary Refill Less than 3 Seconds Skin: No rashes, No breakdown Neurological: Neuro grossly intact, Sensory exam intact to light touch and pain Psych/Mental Status: Normal Affect, Appropriate Vital Signs Temp Pulse Resp BP Pulse Ox 98.1 F 69 18 121/69 H 100 10/14/18 02:28 10/14/18 02:28 10/14/18 02:28 10/14/18 02:28 10/14/18 02:28 Oxygen Delivery Method Room Air Weight: 76 lb 8.006 oz Body Mass Index (BMI) 14.4 Intake and Output for Last 24 Hours 10/12/18 10/13/18 10/14/18 23:59 23:59 23:59 Intake Total 307 / 307 4011 / 4011 2485 / 2485 Output Total 150 / 150 900 / 900 2550 / 2550 Balance 157 / 157 3111 / 3111 -65 / -65 Microbiology Past 72 Hours 10/12/18 14:40 Urine Culture - Preliminary Urine Catheter - 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 Alpha hemolytic organism 10/12/18 19:36 Respiratory Panel (PCR) - Final Mucosa - Nasopharyngeal Call your doctor if you observe: Fever of 101 or Higher, Inability to urinate, Shortness of breath, Dizziness, Chest pain Home Medications: Medications to take at Discharge Acetaminophen [Tylenol] 650 mg RECTAL Q4H PRN PRN 10/12/18 Cholecalciferol (VIT D3) [Vitamin D] 2,000 unit PO DAILY 10/12/18 Divalproex Sodium [Divalproex Sodium ER] 750 mg PO BID 10/12/18 Lorazepam [Ativan] 1 mg PO QHS 10/12/18 Trazodone ER [Oleptro Er] 150 mg PO QHS 10/12/18 Ziprasidone HCl [Geodon] 80 mg PO BID 10/12/18 Ciprofloxacin [Cipro] 500 mg PO BID #10 tab 10/14/18 Following Prescrptions Were Given to Patient: Ciprofloxacin [Cipro] 500 mg PO BID #10 tab Primary Care Physician: Romulo Juárez MD [Primary Care Provider] - Please follow up with your Primary Care Physician in: 3-5 days Disposition: [facility] facility Minutes spent on discharge:: 35 Patient Condition:: Stable Medical Necessity - Tobacco Use Smoking Status: Unknown if ever smoked Tobacco Use: Non-smoker Meaningful Use Info Meaningful Use Diagnoses (Choose all that apply): None applicable Code Visit Inpatient E&M: 30013 Disch Hosp
--- NOTE | 2018-10-14 09:29 | DS.PCM_ITS ---
Discharge Date and Diagnosis - Problem List Patient Problems: Active and Suspected Problems UTI (urinary tract infection) (Acute) Acute metabolic encephalopathy (Acute) Date of Admission: 10/12/18 Date of Discharge: 10/14/18 - Primary Discharge Diagnosis Active and Suspected Problems UTI (urinary tract infection) (Acute) Acute metabolic encephalopathy (Acute) - Secondary Discharge Diagnosis Chronic Problems Anxiety (Chronic) Schizophrenia (Chronic) Bipolar 1 disorder (Chronic) Insomnia (Chronic) Debility (Chronic) Hospital Course and Treatment Imaging Results: CT brain: IMPRESSION: Chronic involutional changes of the brain. CXR: IMPRESSION: Normal x-ray examination of the chest. Consults: None Operations: None Procedures: None Summary of Care Provided: Per HPI: The patient is a 67 year old F with past medical history of schizophrenia, bipolar, anxiety, insomnia, debility, COPD, resident of [facility], who [facility] with [facility] confusion. There is nobody here to provide a history aside from the patient who is very confused. She is able to tell me her name and what year it is however otherwise she is very confused. She states she does not know why which she was sent here. She thinks it is because she asked for water causing them to send her to the emergency room. It appears that she may have a urinary tract infection. She denies abdominal pain, dysuria, fevers or chills, shortness of breath or cough. She seems somewhat lethargic and will not open her eyes during the exam. Hospital Course: 1. Acute metabolic encephalopathy secondary to acute UTI -on admission she was lethargic and was unable to communicate very well she had a chest x-ray which was negative and CT brain which was also negative. Her UA in the ER was dirty and a cultures demonstrating gram-negative rods and alpha hemolytic gram- positive cocci, she is currently on Cipro twice daily and her mentation has improved greatly. She was able to communicate with me today and hold a conversation and she was awake. Vital signs are normal and she has been afebrile. We will plan for discharge back to her SNF on p.o. Cipro twice daily for 5 more days. I will monitor her urine culture results and if a change in antibiotic needs to be done I will call the prison. 2. Her other home medical diagnoses were evaluated and her home medications were continued aware appropriate Patient Problems: Active and Suspected Problems UTI (urinary tract infection) (Acute) Acute metabolic encephalopathy (Acute) - Physical Exam General: Alert, Oriented x3, Cooperative, No apparent distress HEENT: Atraumatic, PERRLA, EOMI, Normocephalic Oral: Moist Mucosa Neck: Supple, No JVD, Trachea Midline Lungs: Clear to auscultation, Normal air movement, No rhonchi, No wheeze, No rales Cardiovascular: Regular rate, Regular Rhythm, Normal S1, Normal S2, No murmurs, No rub noted, No Gallop Abdomen: Soft, Non Tender, Non-Distended, No Hepato-splenomegaly Extremities: No edema, Capillary Refill Less than 3 Seconds Skin: No rashes, No breakdown Neurological: Neuro grossly intact, Sensory exam intact to light touch and pain Psych/Mental Status: Normal Affect, Appropriate Vital Signs Temp Pulse Resp BP Pulse Ox 98.1 F 69 18 121/69 H 100 10/14/18 02:28 10/14/18 02:28 10/14/18 02:28 10/14/18 02:28 10/14/18 02:28 Oxygen Delivery Method Room Air Weight: 76 lb 8.006 oz Body Mass Index (BMI) 14.4 Intake and Output for Last 24 Hours 10/12/18 10/13/18 10/14/18 23:59 23:59 23:59 Intake Total 307 / 307 4011 / 4011 2485 / 2485 Output Total 150 / 150 900 / 900 2550 / 2550 Balance 157 / 157 3111 / 3111 -65 / -65 Microbiology Past 72 Hours 10/12/18 14:40 Urine Culture - Preliminary Urine Catheter - 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 Alpha hemolytic organism 10/12/18 19:36 Respiratory Panel (PCR) - Final Mucosa - Nasopharyngeal Call your doctor if you observe: Fever of 101 or Higher, Inability to urinate, Shortness of breath, Dizziness, Chest pain Home Medications: Medications to take at Discharge Acetaminophen [Tylenol] 650 mg RECTAL Q4H PRN PRN 10/12/18 Cholecalciferol (VIT D3) [Vitamin D] 2,000 unit PO DAILY 10/12/18 Divalproex Sodium [Divalproex Sodium ER] 750 mg PO BID 10/12/18 Lorazepam [Ativan] 1 mg PO QHS 10/12/18 Trazodone ER [Oleptro Er] 150 mg PO QHS 10/12/18 Ziprasidone HCl [Geodon] 80 mg PO BID 10/12/18 Ciprofloxacin [Cipro] 500 mg PO BID #10 tab 10/14/18 Following Prescrptions Were Given to Patient: Ciprofloxacin [Cipro] 500 mg PO BID #10 tab Primary Care Physician: Romulo Juárez MD [Primary Care Provider] - Please follow up with your Primary Care Physician in: 3-5 days Disposition: Group Home facility Minutes spent on discharge:: 35 Patient Condition:: Stable Medical Necessity - Tobacco Use Smoking Status: Unknown if ever smoked Tobacco Use: Non-smoker Meaningful Use Info Meaningful Use Diagnoses (Choose all that apply): None applicable Code Visit Inpatient E&M: 23334 Disch Hosp
[2018-10-14 09:54] VITALS: BP 144/74; PULSE 86; RESP 18; TEMP 37.2; O2SAT 93
[2018-10-14] MEDS: Ciprofloxacin 400 MG/200 ML BAG 200 MG IV (09:59)
[2018-10-14] MEDS: Enoxaparin 40 MG/0.4 ML Syringe SC (10:00)
== END 2018-10-14 11:45 | disposition skilled nursing facility (03) | DRG 689 ==
LOC: ED 15:26 → MS3 16:10
PROVIDERS: Emergency Provider Emergency Medicine; Family Provider Family Medicine; PCP Family Medicine; Visit Provider Family Medicine
DX: N39.0 Urinary tract infection, site not specified (principal); G93.41 Metabolic encephalopathy; Z68.1 Body mass index [BMI] 19.9 or less, adult; E44.0 Moderate protein-calorie malnutrition; B96.89 Other specified bacterial agents as the cause of diseases classified elsewhere; F41.9 Anxiety disorder, unspecified; F20.9 Schizophrenia, unspecified; F31.9 Bipolar disorder, unspecified; G47.00 Insomnia, unspecified; R53.81 Other malaise
CPT/HCPCS: 36415; 70450; 71045; 80053; 81001; 82306; 83605; 84134; 84443; 85025; 85610; 85730; 87040; 87077; 87086; 87088; 87186; 87633; 93005; 97162; 97165; 97802; 99285; J7030; A4216; J0744